=== PATIENT | male | born 1985 ===

== ENCOUNTER 2016-09-23 11:38 | Emergency (ER) | payer BC, OTHER ==
[2016-09-23 11:45] VITALS: RESP 18
--- NOTE | 2016-09-23 13:26 | C.PDOC ---
History Of Present Illness 31 yr old male presents to the ER with complaints of rectal pain and bleeding. Patient states 2 weeks ago he gave himself a enema to "clean my colon". Patient states he noticed a lot of bleeding right afterwards but had slowed down. However, for the last 2 weeks patient states he has been having episodes of dripping blood. Patient also states his stool went from being formed to pellet like and has very painful time moving his bowels. Patient denies fever, chest pain, SOB, nausea, vomiting, abdominal pain, constipation, dysuria, incontinence , weakness or numbness, Time Seen by Provider: 09/23/16 12:30 Chief Complaint (Nursing): GI Problem History Per: Patient History/Exam Limitations: no limitations Onset/Duration Of Symptoms: Days (2 weeks ) Past Medical History Reviewed: Historical Data, Nursing Documentation, Vital Signs Vital Signs: Last Vital Signs Temp 98.1 F 09/23/16 13:35 Pulse 104 H 09/23/16 13:35 Resp 18 09/23/16 13:35 BP 126/85 09/23/16 13:35 Pulse Ox 97 09/23/16 14:18 - Medical History Other PMH: on PEP Family History: States: No Known Family Hx - Social History Hx Tobacco Use: Yes Hx Alcohol Use: No Hx Substance Use: No Review Of Systems Except As Marked, All Systems Reviewed And Found Negative. Constitutional: Negative for: Fever Cardiovascular: Negative for: Chest Pain Respiratory: Negative for: Shortness of Breath Gastrointestinal: Positive for: Hematochezia, Rectal Pain. Negative for: Nausea , Vomiting, Abdominal Pain, Constipation Genitourinary: Negative for: Dysuria, Incontinence Neurological: Negative for: Weakness, Numbness Physical Exam - Physical Exam Appears: Well, Non-toxic, No Acute Distress Skin: Warm, Dry, No Rash Head: Atraumatic, Normacephalic Chest: Symmetrical, No Tenderness Cardiovascular: Rhythm Regular, No Murmur Respiratory: Normal Breath Sounds, No Rales, No Rhonchi, No Wheezing Gastrointestinal/Abdominal: Normal Exam, Soft, No Tenderness, No Guarding, No Rebound Rectal: No Hemorrhoids, No Mass, Tenderness (Minimal ) Back: Normal Inspection, No CVA Tenderness Extremity: Normal ROM, No Swelling Neurological/Psych: Oriented x3, Normal Speech, Normal Motor ED Course And Treatment O2 Sat by Pulse Oximetry: 97 Medical Decision Making Medical Decision Making: Pt did not want blood work, only something for pain. 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 in few days He has no active bleeding Plan dc home with meds - return new or worsening sympt Disposition - Disposition Disposition: HOME/ ROUTINE Disposition Time: 13:25 Condition: GOOD Prescriptions: Ibuprofen [Motrin] 1 tab PO QID PRN #30 tab PRN Reason: .Pain or Fever Lidocaine 2% Viscous 5 ml TOP Q2H PRN #1 bottle PRN Reason: .severe pain metroNIDAZOLE [Flagyl] 1 tab PO BID #14 tab Instructions: Rectal Pain (ED) - Clinical Impression Clinical Impression: Rectal pain - Scribe Statement The provider has reviewed the documentation as recorded by the Vinayibe Kala Hoyos Provider Attestation: All medical record entries made by the Vinayibclementine were at my direction and personally dictated by me. I have reviewed the chart and agree that the record accurately reflects my personal performance of the history, physical exam, medical decision making, and the department course for this patient. I have also personally directed, reviewed, and agree with the discharge instructions and disposition.
[2016-09-23 13:36] VITALS: BP 126/85; PULSE 104; TEMP 98.1
[2016-09-23 14:16] VITALS: O2SAT 97
== END 2016-09-23 13:57 | disposition home or self-care (01) ==
LOC: C.ER 11:38
DX: K62.89 Other specified diseases of anus and rectum (principal)